=== PATIENT | female | born 1985 | race Two or more races ===

== ENCOUNTER 2018-04-19 20:02 | Emergency (ER) | payer MEDICAID, OTHER ==
[~2018-04-19] VITALS: Ht 167.6 cm; Wt 104.3 kg
[2018-04-19 20:05] VITALS: BP 138/74
[2018-04-19] MEDS ORDERED: diphenhdrAMINE HCL 25 MG CAP PO ONE (22:00)
[2018-04-19] MEDS ORDERED: methylPREDNISolone SOD SUCC 125 MG/2 ML VL IM ONE (22:00)
== END 2018-04-19 22:39 | disposition home or self-care (01) ==
LOC: ER 20:02
DX: T63.441A Toxic effect of venom of bees, accidental (unintentional), initial encounter (principal); H57.11 Ocular pain, right eye; R22.9 Localized swelling, mass and lump, unspecified; Y92.89 Other specified places as the place of occurrence of the external cause
CPT/HCPCS: 99283; J2930

== ENCOUNTER 2019-07-09 09:40 | Emergency (ER) | payer MEDICAID ==
[~2019-07-09] VITALS: Ht 167.6 cm; Wt 66.2 kg
[2019-07-09 10:00] VITALS: BP 103/71
[2019-07-09] MEDS ORDERED: cefTRIAXone SOD 1,000 MG VL IM ONE (10:45)
[2019-07-09] MEDS ORDERED: methylPREDNISolone SOD SUCC 125 MG/2 ML VL IM ONE (10:45)
== END 2019-07-09 11:13 | disposition home or self-care (01) ==
LOC: ER 09:40
DX: J03.90 Acute tonsillitis, unspecified (principal)
CPT/HCPCS: 96372; 99283; J0696; J2930